=== PATIENT | female | born 2000 | race American Indian/Alaskan Native ===

== ENCOUNTER 2022-06-29 11:43 | Emergency (ER) | payer OTHER ==
[2022-06-29 14:25] LABS: Alanine Aminotransferase 11 units/L (7-56); Albumin 4.6 g/dL (3.9-5); Blood Urea Nitrogen 7 mg/dL (7-17); Calcium 9.7 mg/dL (8.4-10.2); Hemolysis Index 1
[2022-06-29 14:26] LABS: BUN/Creatinine Ratio 10
--- NOTE | 2022-06-29 15:28 | Emergency Department Report ---
ED General Adult HPI - General Chief complaint: Abdominal Pain Stated complaint: /SPOTTING Time Seen by Provider: 06/29/22 15:25 Source: patient Mode of arrival: Ambulatory Limitations: No Limitations - History of Present Illness Initial comments: The patient presents to the emergency department the chief complaint of spotting. Patient states that she took a test at home which was positive and then began to have some abdominal cramping and spotting a couple of days after that. Patient states her last menstrual cycle was May 07. Patient states she went to a clinic today and was told to come to the emergency department for evaluation. Patient does endorse nausea. Patient denies chest pain or shortness of breath -: Gradual Severity scale (0 -10): 2 Quality: other (cramping) Consistency: constant Improves with: none Worsens with: none Associated Symptoms: denies other symptoms Treatments Prior to Arrival: none - Related Data Allergies Allergy/AdvReac Type Severity Reaction Status Date / Time No Known Allergies Allergy Unverified 06/29/22 12:57 ED Review of Systems ROS: Stated complaint: /SPOTTING Other details as noted in HPI Comment: All other systems reviewed and negative Constitutional: denies: chills, fever Eyes: denies: eye pain, eye discharge, vision change ENT: denies: ear pain, throat pain Respiratory: denies: cough, shortness of breath, wheezing Cardiovascular: denies: chest pain, palpitations Endocrine: no symptoms reported Gastrointestinal: denies: abdominal pain, nausea, diarrhea Genitourinary: denies: urgency, dysuria, discharge Musculoskeletal: denies: back pain, joint swelling, arthralgia Skin: denies: rash, lesions Neurological: denies: headache, weakness, paresthesias Psychiatric: denies: anxiety, depression Hematological/Lymphatic: denies: easy bleeding, easy bruising ED Past Medical Hx - Past Medical History Previous Medical History?: No - Surgical History Past Surgical History?: No ED Physical Exam - General Limitations: No Limitations General appearance: alert, in no apparent distress - Head Head exam: Present: atraumatic, normocephalic - Eye Eye exam: Present: normal appearance, PERRL, EOMI - ENT ENT exam: Present: mucous membranes moist - Neck Neck exam: Present: normal inspection - Respiratory Respiratory exam: Present: normal lung sounds bilaterally. Absent: respiratory distress - Cardiovascular Cardiovascular Exam: Present: regular rate, normal rhythm. Absent: systolic murmur, diastolic murmur, rubs, gallop - GI/Abdominal GI/Abdominal exam: Present: soft, normal bowel sounds. Absent: distended, tenderness - Extremities Exam Extremities exam: Present: normal inspection - Back Exam Back exam: Present: normal inspection - Neurological Exam Neurological exam: Present: alert, oriented X3, CN II-XII intact. Absent: motor sensory deficit - Psychiatric Psychiatric exam: Present: normal affect, normal mood - Skin Skin exam: Present: warm, dry, intact, normal color. Absent: rash ED Course Vital Signs 06/29/22 12:57 Temperature 98.3 F Pulse Rate 66 Respiratory 18 Rate Blood Pressure 136/68 [Left] O2 Sat by Pulse 98 Oximetry ED Medical Decision Making - Lab Data Result diagrams: 06/29/22 13:05 Lab Results 06/29/22 06/29/22 06/29/22 Range/Units 13:05 13:05 13:05 Sodium 137 (137-145) mmol/L Potassium 4.8 (3.6-5.0) mmol/L Chloride 103.4 (98-107) mmol/L Carbon Dioxide 23 (22-30) mmol/L Anion Gap 15 mmol/L BUN 7 (7-17) mg/dL Creatinine 0.7 (0.6-1.2) mg/dL Estimated GFR > 60 ml/min BUN/Creatinine Ratio 10 % Glucose 75 (65-100) mg/dL Calcium 9.7 (8.4-10.2) mg/dL Total Bilirubin 0.40 (0.1-1.2) mg/dL AST 13 (5-40) units/L ALT 11 (7-56) units/L Alkaline Phosphatase 79 (35-129) units/L Total Protein 7.4 (6.3-8.2) g/dL Albumin 4.6 (3.9-5) g/dL Albumin/Globulin Ratio 1.6 % HCG, Qual Positive (Negative) HCG, Quant 90265 H (0-4) mIU/mL Urine Color (Yellow) Urine Turbidity (Clear) Specific [place] (Man) (1.003-1.030) Ur Protein (Man) (Negative) mg/dL Ur Ketones (Man) (Negative) Ur Nitrite (Man) (Negative) Urine Bilirubin (Man) (Negative) Leukocyte Esterase (Man) (Negative) Urine WBC (Auto) (0.0-6.0) /HPF Urine RBC (Auto) (0.0-6.0) /HPF U Epithel Cells (Auto) (0-13.0) /HPF Urine Bacteria (Auto) (Negative) /HPF Urine RBC (Manual) (Negative) Urine Mucus /HPF 06/29/22 Range/Units Unknown Sodium (137-145) mmol/L Potassium (3.6-5.0) mmol/L Chloride (98-107) mmol/L Carbon Dioxide (22-30) mmol/L Anion Gap mmol/L BUN (7-17) mg/dL Creatinine (0.6-1.2) mg/dL Estimated GFR ml/min BUN/Creatinine Ratio % Glucose (65-100) mg/dL Calcium (8.4-10.2) mg/dL Total Bilirubin (0.1-1.2) mg/dL AST (5-40) units/L ALT (7-56) units/L Alkaline Phosphatase (35-129) units/L Total Protein (6.3-8.2) g/dL Albumin (3.9-5) g/dL Albumin/Globulin Ratio % HCG, Qual (Negative) HCG, Quant (0-4) mIU/mL Urine Color Straw (Yellow) Urine Turbidity Slightly cloudy (Clear) Specific [place] (Man) 1.015 (1.003-1.030) Ur Protein (Man) 1+ (Negative) mg/dL Ur Ketones (Man) 5mg/dl (Negative) Ur Nitrite (Man) Negative (Negative) Urine Bilirubin (Man) Negative (Negative) Leukocyte Esterase (Man) Negative (Negative) Urine WBC (Auto) 2.0 (0.0-6.0) /HPF Urine RBC (Auto) 1.0 (0.0-6.0) /HPF U Epithel Cells (Auto) 5.0 (0-13.0) /HPF Urine Bacteria (Auto) 1+ (Negative) /HPF Urine RBC (Manual) Negative (Negative) Urine Mucus Few /HPF - Radiology Data Radiology results: report reviewed - Medical Decision Making Discussed results with patient and the need to follow-up with an [facility]. Critical care attestation.: If time is entered above; I have spent that time in minutes in the direct care of this critically ill patient, excluding procedure time. ED Disposition Clinical Impression: Vaginal bleeding affecting early Disposition: 01 HOME / SELF CARE / HOMELESS Is pt being admited?: No Does the pt Need Aspirin: No Condition: Stable Instructions: Abdominal Pain (ED), Vaginal Bleeding During , First Trimester Additional Instructions: return if worse Referrals: [facility] [Provider Group] - 3-5 Days Time of Disposition: 19:03
[2022-06-29 16:26] LABS: Bacteria,Urine 1+ /HPF (Negative); Color,Urine Straw (Yellow)
[2022-06-29 16:27] LABS: Mucus,Urine FEW /HPF
--- NOTE | 2022-06-29 18:37 | Ultrasound Report ---
US OB TRANSVAGINAL US OB <= 14 WEEKS FETUS INDICATION / CLINICAL INFORMATION: SPOTTING. COMPARISON: None available. FINDINGS: Intrauterine gestational sac is noted with yolk sac and pole. [place]-rump length is 11 mm (7 wee ks, 2 days). heart rate is 146. There is a 2.1 cm complex right ovarian cyst. Left ovary is unremarkable. Trace free fluid is noted in the cul-de-sac. IMPRESSION: 1. Single viable intrauterine with sonographic gestational age of 7 weeks, 2 days. 2. Complex right ovarian cyst may be corpus luteal cyst. Signer Name: Sekou Koroma MD Signed: 06/29/2022 6:33 PM Workstation Name: [email or web address]
--- NOTE | 2022-06-29 18:38 | Ultrasound Report ---
US OB TRANSVAGINAL US OB <= 14 WEEKS FETUS INDICATION / CLINICAL INFORMATION: SPOTTING. COMPARISON: None available. FINDINGS: Intrauterine gestational sac is noted with yolk sac and pole. [place]-rump length is 11 mm (7 wee ks, 2 days). heart rate is 146. There is a 2.1 cm complex right ovarian cyst. Left ovary is unremarkable. Trace free fluid is noted in the cul-de-sac. IMPRESSION: 1. Single viable intrauterine with sonographic gestational age of 7 weeks, 2 days. 2. Complex right ovarian cyst may be corpus luteal cyst. Signer Name: Sekou Koroma MD Signed: 06/29/2022 6:33 PM Workstation Name: [id number]
[2022-06-29 22:11] VITALS: BP 133/84
== END 2022-06-29 19:25 | disposition home or self-care (01) ==
LOC: ED 11:43
DX: O46.91 Antepartum hemorrhage, unspecified, first trimester (principal); Z3A.00 Weeks of gestation of pregnancy not specified
CPT/HCPCS: 36415; 76801; 76817; 80053; 81001; 84702; 84703; 99284